=== PATIENT | male | born 1985 | race African-American/Black ===

== ENCOUNTER 2021-11-04 14:45 | Outpatient (CLI) | payer OTHER, MEDICAID | END 2021-11-04 14:46 | disposition home or self-care (01) | LOC: CSHRAD 14:45 | PROVIDERS: ATTEND Family Medicine | DX: M54.50 Low back pain, unspecified (principal) | CPT/HCPCS: 72100 ==

== ENCOUNTER 2021-12-04 10:08 | Emergency (ER) | payer MEDICARE, MEDICAID ==
[2021-12-04] MEDS ORDERED: Ibuprofen 200 MG TAB ONE (11:22)
[2021-12-05 00:14] LABS: SARS-CoV-2 PCR by NAA DETECTED (NotDetected)
== END 2021-12-04 13:34 | disposition home or self-care (01) ==
LOC: CSHERS 10:08
DX: U07.1 COVID-19 (principal); J20.9 Acute bronchitis, unspecified; I10 Essential (primary) hypertension
CPT/HCPCS: 71045; 87804 ×2; 99285; U0003; U0005

== ENCOUNTER 2022-03-26 09:46 | Emergency (ER) | payer MEDICARE, MEDICAID ==
[2022-03-26] MEDS ORDERED: Mag-Al Plus 1200 MG/1200 MG/120 MG/30 ML UDCUP ONE ×2 (10:56)
[2022-03-26] MEDS ORDERED: Lidocaine Viscous Sol 2% 15 ml UD Cup ONE (10:56)
[2022-03-26 11:08] LABS: ALT (SGPT) 73 U/L (8-55); AST (SGOT) 49 U/L (5-34); Albumin 4.5 g/dL (3.5-5.0); Alkaline Phosphatase 79 U/L (40-110); Anion Gap 15 mmol/L (10-20); BUN (Urea Nitrogen) 14 mg/dL (8.9-20.6); Bilirubin, Total 0.6 mg/dL (0.2-1.2); Calc. Creatinine Clearance 0 mL/min (70-130); Calcium 9.7 mg/dL (7.8-10.44); Carbon Dioxide 25 mmol/L (22-29); Chloride 102 mmol/L (98-107); Globulin 3.9 g/dL (2.4-3.5); Glucose 97 mg/dL (70-105); Lipase 12 U/L (8-78); Potassium 4.5 mmol/L (3.5-5.1); Protein, Total 8.4 g/dL (6.0-8.3); Sodium 137 mmol/L (136-145)
[2022-03-26 11:16] LABS: #Monocytes 0.7 10x3/uL (0.0-1.1); #Neutrophils 6.9 10x3/uL (1.5-8.4); %Basophils 0.3 % (0.0-2.0); %Eosinophils 0.2 % (0.0-6.0); %Lymphocytes 15.6 % (18.0-47.0); %Monocytes 7.9 % (0.0-10.0); %Neutrophils 75.7 % (40.0-75.0); Hemoglobin 14.8 g/dL (13.5-17.5); Mean Corpuscular HGB CONC 33.4 g/dL (32.0-36.0); Mean Corpuscular Hemoglobin 28.4 pg (27.0-33.0); Mean Platelet Volume 9.7 fl (7.4-10.4); Platelet Count 396 10x3/uL (150-450); RBC Distribution Width 12.8 % (11.5-14.5); Red Blood Cell (RBC) Count 5.21 10x6/uL (4.32-5.72); White Blood Cell (WBC) Count 9.2 10x3/uL (3.5-10.5)
== END 2022-03-26 14:42 | disposition home or self-care (01) ==
LOC: CSHERS 09:46
DX: R07.89 Other chest pain (principal); R74.01 Elevation of levels of liver transaminase levels; I10 Essential (primary) hypertension; M19.90 Unspecified osteoarthritis, unspecified site
CPT/HCPCS: 36415; 71045; 76705; 80053; 83690; 84484; 85025; 93005; 94760

== ENCOUNTER 2024-10-08 11:10 | Outpatient (CLI) | payer MEDICARE, MEDICAID | END 2024-10-08 11:11 | disposition home or self-care (01) | LOC: CSHRAD 11:10 | PROVIDERS: ATTEND Family Medicine | DX: M16.0 Bilateral primary osteoarthritis of hip (principal); Z96.642 Presence of left artificial hip joint ==